=== PATIENT | female | born 1970 | race Caucasian/White ===

== ENCOUNTER 2018-01-08 16:28 | Emergency (ER) | payer SELFPAY ==
[~2018-01-08] VITALS: Ht 157.5 cm; Wt 88.5 kg
[~2018-01-08 16:28] MED LIST: ALLEGRA ALLERG180 MG PO; AUGMENTIN875 MG PO; B COMPLETE1 EACH PO; BENTYL20 MG PO; CIPRO500 MG PO; CIPROFLOXACIN500 M1 PO; CLARITIN10 M3 PO; COLACE100 MG PO; DESYREL 150 MG150 MG PO; EXTRA STRENGTH500 M1 PO; FENOFIBRATE160 M1 PO; FLAGYL500 MG PO; FLEXERIL5 MG PO; FLOMAX0.4 MG PO; FLONASE16 G1 BOTH NARES; LEVBID0.375 MG PO; METRONIDAZOLE500 MG PO; MS CONTIN,ORAMO15 M1 PO; PERCOCET 10/1 TABLET PO; PERCOCET 5/31 TABLET PO; PERCOCET 7.51 TABLET PO; PHENTERMINE HCL30 MG PO; PROMETHAZINE HC25 M1 PO; SINGULAIR10 MG PO; STOOL SOFTENER250 MG PO; TYLENOL EXTRA500 MG PO; VITAMIN B COMP PO; WELLBUTRIN XL300 MG PO; WOMEN'S DAILY1 EAC1 PO; WOMEN'S ONE DA1 EACH PO; ZESTORETIC,P1 TABLE1 PO; ZOFRAN ODT8 MG PO; ZOFRAN4 MG PO
[2018-01-08 17:31] LABS: HEMATOCRIT 41.5 % (36.0-46.0); HEMOGLOBIN 14.8 G/DL (11.9-15.5); MCH 30.8 PG (29.0-34.0); MCHC 35.7 G/DL (30.0-36.0); MCV 86.3 FL (83-99); PLATELET COUNT 278 K/uL (156-360); RBC DIS.WIDTH-CV 11.7 % (11.8-14.6); RBC DIS.WIDTH-SD 37.1 % (39-53); RED BLOOD COUNT 4.81 M/uL (3.80-5.20); WHITE BLOOD COUNT 8.8 K/uL (4.1-10.2)
[2018-01-08 17:40] LABS: ALBUMIN 4.5 g/dL (3.2-4.8)
[2018-01-08 17:41] LABS: CHLORIDE 104 mEq/L (99-109); POTASSIUM 3.8 mEq/L (3.7-5.4); SODIUM 139 mEq/L (136-147)
[2018-01-08 17:43] LABS: GLUCOSE 107 mg/dL (70-99); TOTAL PROTEIN 8.2 g/dL (6.4-8.3)
[2018-01-08 17:45] LABS: TOTAL BILIRUBIN 0.5 mg/dL (0.0-1.0)
[2018-01-08 17:46] LABS: ALKALINE PHOSPHATASE 72 IU/L (3-129)
[2018-01-08 17:47] LABS: CREATININE 0.8 mg/dL (0.6-1.3); GFR ESTIMATE (CALCULATED) > 59 mL/min/
[2018-01-08 17:48] LABS: AST (GOT) 15 IU/L (2-34); UREA NITROGEN (BUN) 10 mg/dL (9-23)
[2018-01-08 17:50] LABS: ALT (GPT) 15 IU/L (3-49)
[2018-01-08] MEDS ORDERED: CIPRO500 MG PO (18:51)
[2018-01-08] MEDS ORDERED: FLAGYL500 MG PO (18:51)
[2018-01-08] MEDS ORDERED: ZOFRAN ODT4 MG PO (18:51)
[2018-01-08] MEDS ORDERED: PERCOCET 5/31 TABLET PO (18:51)
[2018-01-08 19:16] VITALS: BP 145/85
== END 2018-01-08 19:21 | disposition home or self-care (01) ==
LOC: EME 16:28 → EXP 16:28
PROVIDERS: Nurse Practitioner Family
DX: K57.30 Diverticulosis of large intestine without perforation or abscess without bleeding (principal); K46.9 Unspecified abdominal hernia without obstruction or gangrene; F41.9 Anxiety disorder, unspecified; J45.909 Unspecified asthma, uncomplicated; Z87.442 Personal history of urinary calculi; Z90.49 Acquired absence of other specified parts of digestive tract; Z90.710 Acquired absence of both cervix and uterus; Z88.5 Allergy status to narcotic agent
CPT/HCPCS: 74177; 80053; 85027; 99281; 99285; J2270; J2405; J3010; J7030

== ENCOUNTER 2018-02-13 16:50 | Emergency (ER) | payer OTHER ==
[~2018-02-13] VITALS: Ht 157.5 cm; Wt 88.8 kg
[~2018-02-13 16:50] MED LIST changes: +ZOFRAN ODT4 MG PO
[2018-02-13 17:57] LABS: HEMATOCRIT 40.6 % (36.0-46.0); HEMOGLOBIN 14.3 G/DL (11.9-15.5); MCH 30.6 PG (29.0-34.0); MCHC 35.2 G/DL (30.0-36.0); MCV 86.9 FL (83-99); PLATELET COUNT 263 K/uL (156-360); RBC DIS.WIDTH-CV 11.8 % (11.8-14.6); RBC DIS.WIDTH-SD 37.4 % (39-53); RED BLOOD COUNT 4.67 M/uL (3.80-5.20); WHITE BLOOD COUNT 8.7 K/uL (4.1-10.2)
[2018-02-13 17:59] LABS: ALBUMIN 4.3 g/dL (3.2-4.8)
[2018-02-13 18:00] LABS: CHLORIDE 103 mEq/L (99-109); POTASSIUM 3.7 mEq/L (3.7-5.4); SODIUM 137 mEq/L (136-147)
[2018-02-13 18:02] LABS: GLUCOSE 92 mg/dL (70-99); TOTAL PROTEIN 7.6 g/dL (6.4-8.3)
[2018-02-13 18:04] LABS: TOTAL BILIRUBIN 0.6 mg/dL (0.0-1.0)
[2018-02-13 18:05] LABS: ALKALINE PHOSPHATASE 74 IU/L (3-129)
[2018-02-13 18:06] LABS: CREATININE 0.8 mg/dL (0.6-1.3); GFR ESTIMATE (CALCULATED) > 59 mL/min/
[2018-02-13 18:07] LABS: AST (GOT) 16 IU/L (2-34); UREA NITROGEN (BUN) 12 mg/dL (9-23)
[2018-02-13 18:09] LABS: ALT (GPT) 15 IU/L (3-49); LIPASE 17 U/L (1.0-51.0)
[2018-02-13 19:56] LABS: APPEARANCE CLEAR ((CLEAR)); BILIRUBIN NEGATIVE; BLOOD MODERATE; COLOR YELLOW ((YELLOW)); GLUCOSE (STRIP) NEGATIVE; KETONES NEGATIVE; LEUKOCYTES NEGATIVE; NITRITE NEGATIVE; PROTEIN (STRIP) 100; SPECIFIC GRAVITY 1.046 (1.000-1.030); UROBILINOGEN 0.2 MG/DL (0.2-1.0)
[2018-02-13 20:05] LABS: BACTERIA RARE /HPF; EPITHELIAL CELLS 1+ /HPF; MUCUS TRACE /LPF; UCUL ADDED? NO; WHITE BLOOD CELLS 0-5 /HPF (0-5)
[2018-02-13] MEDS ORDERED: CIPRO500 MG PO (20:31)
[2018-02-13] MEDS ORDERED: PERCOCET 5/31 TABLET PO (20:31)
[2018-02-13] MEDS ORDERED: FLAGYL500 MG PO (20:31)
[2018-02-13 20:53] VITALS: BP 135/85
== END 2018-02-13 20:53 | disposition home or self-care (01) ==
LOC: EME 16:50
PROVIDERS: Nurse Practitioner Family
DX: K57.92 Diverticulitis of intestine, part unspecified, without perforation or abscess without bleeding (principal); J45.909 Unspecified asthma, uncomplicated; F41.9 Anxiety disorder, unspecified; Z87.442 Personal history of urinary calculi; Z90.710 Acquired absence of both cervix and uterus; Z88.5 Allergy status to narcotic agent; Z88.8 Allergy status to other drugs, medicaments and biological substances
CPT/HCPCS: 74177; 80053; 81003; 83605; 83690; 85027; 87040; 99281; 99284; J2270; J2765; J3010; J7030